=== PATIENT | female | born 2000 | race Caucasian/White ===

== ENCOUNTER 2021-02-11 19:17 | Emergency (ER) | payer BC ==
[2021-02-11] MEDS ORDERED: Dexamethasone 10 MG/ML VIAL ONE (20:23)
[2021-02-11] MEDS ORDERED: Ketorolac Tromethamine 30 MG/ML VIAL ONE (20:23)
[2021-02-11] MEDS ORDERED: Cyclobenzaprine 10 MG TAB ONE (20:24)
[2021-02-11] MEDS ORDERED: Morphine 4 MG/ML VIAL ONE (21:41)
[2021-02-11] MEDS ORDERED: Ondansetron ODT 4 MG TAB ONE (21:41)
== END 2021-02-11 22:39 | disposition home or self-care (01) ==
LOC: CSHERS 19:17
DX: M54.50 Low back pain, unspecified (principal); M41.9 Scoliosis, unspecified; X50.1XXA Overexertion from prolonged static or awkward postures, initial encounter; Y93.73 Activity, racquet and hand sports
CPT/HCPCS: 96372; 99283; J1100; J1885; J2270; Q0162